=== PATIENT | female | born 1950 | race African-American/Black ===

== ENCOUNTER 2016-09-12 14:55 | Emergency (ER) | payer OTHER ==
[~2016-09-12] VITALS: Ht 165.1 cm; Wt 82.1 kg
[~2016-09-12 14:55] MED LIST: AZITHROMYCIN500 M1 PO; BENZONATATE100 MG PO; BREO ELLIPTA 21 EACH IH; CARDIZEM CD240 MG PO; DUONEB 2.5-0.5 M3 ML AEROSOL; INCRUSE ELLI62.5 MCG IH; LEVAQUIN500 MG PO; LEVOFLOXACIN750 MG PO; OMEPRAZOLE20 MG PO; OMEPRAZOLE40 M1 PO; PREDNISONE10 MG PO; PREDNISONE5 MG PO; PROVENTIL,2.5 MG/3 M IH; SPIRIVA RESPIMAT4 GM IH; VENTOLIN HFA18 GM IH
[2016-09-12 16:13] LABS: HEMATOCRIT 42.7 % (36.0-46.0); MCH 28.8 PG (29.0-34.0); MCHC 32.6 G/DL (30.0-36.0); MCV 88.4 FL (83-99); MEAN PLAT.VOLUME 10.7 uM^3 (9.5-12.4); PLATELET COUNT 238 K/uL (156-360); RBC DIS.WIDTH-CV 14.3 % (11.8-14.6); RBC DIS.WIDTH-SD 46.1 % (39-53); RED BLOOD COUNT 4.83 M/uL (3.80-5.20)
[2016-09-12 16:23] LABS: CHLORIDE 107 mEq/L (99-109); POTASSIUM 3.7 mEq/L (3.7-5.4); SODIUM 140 mEq/L (136-147)
[2016-09-12 16:24] LABS: GLUCOSE 105 mg/dL (70-99)
[2016-09-12 16:26] LABS: ANION GAP 11 MEQ/L (2-14)
[2016-09-12 16:28] LABS: GFR ESTIMATE (CALCULATED) > 59 mL/min/
[2016-09-12 16:29] LABS: UREA NITROGEN (BUN) 12 mg/dL (9-23)
[2016-09-12 16:35] LABS: TROP-I INTERPRETATION NEGATIVE; TROPONIN-I < 0.01 ng/mL (0.0-0.30)
[2016-09-12 17:33] LABS: INFLUENZA A VIRAL ANTIGEN NEGATIVE; INFLUENZA B VIRAL ANTIGEN NEGATIVE
[2016-09-12] MEDS ORDERED: PREDNISONE20 MG PO (17:49)
[2016-09-12 18:39] VITALS: BP 153/91
== END 2016-09-12 18:40 | disposition home or self-care (01) ==
LOC: EME 14:55
PROVIDERS: Nurse Practitioner Family
DX: J43.9 Emphysema, unspecified (principal); J44.9 Chronic obstructive pulmonary disease, unspecified; Z87.891 Personal history of nicotine dependence
CPT/HCPCS: 71020; 80048; 84484; 85027; 87502; 93005; 94640; 99281; 99284

== ENCOUNTER 2017-08-15 09:55 | Inpatient (IN) | payer OTHER ==
[~2017-08-15] VITALS: Ht 165.1 cm; Wt 87.3 kg
[~2017-08-15 09:55] MED LIST changes: +PREDNISONE20 MG PO
[2017-08-15 10:54] LABS: HEMOGLOBIN 14.6 G/DL (11.9-15.5); MCH 29.4 PG (29.0-34.0); MCHC 33.2 G/DL (30.0-36.0); MCV 88.5 FL (83-99); PLATELET COUNT 235 K/uL (156-360); RBC DIS.WIDTH-CV 13.5 % (11.8-14.6); RED BLOOD COUNT 4.97 M/uL (3.80-5.20); WHITE BLOOD COUNT 18.4 K/uL (4.1-10.2)
[2017-08-15 10:54] LABS: BASE EXCESS -3.4 mEq/L (-3 to +3); BICARBONATE 20.3 mEq/L (22-26); CARBOXY HGB 0.6 % (0-5); METHEMOGLOBIN 0.6 % (0-1.5); PO2 246 mm Hg (80-100)
[2017-08-15 10:55] LABS: COMMENTS - BLOOD GASES NAC+; DEVICE NIV VENT; FI02 100 %; MODE SPONT NIV; PCO2 32 mm Hg (35-45); PRES. SUPPORT 15 CM/H2O; SITE LR; TOTAL RESP RATE 20 resp/min; pH 7.41 (7.35-7.45)
[2017-08-15 10:56] LABS: CONTINUOUS POS AIRWAY PRESSURE 5 cm H2O
[2017-08-15 10:57] LABS: ALBUMIN 3.7 g/dL (3.2-4.8); CHLORIDE 102 mEq/L (99-109); POTASSIUM 3.7 mEq/L (3.7-5.4); SODIUM 136 mEq/L (136-147)
[2017-08-15 10:59] LABS: GLUCOSE 138 mg/dL (70-99); TOTAL PROTEIN 7.4 g/dL (6.4-8.3)
[2017-08-15 11:01] LABS: TOTAL BILIRUBIN 1.5 mg/dL (0.0-1.0)
[2017-08-15 11:03] LABS: ALKALINE PHOSPHATASE 112 IU/L (3-129); CREATININE 1.4 mg/dL (0.6-1.3); GFR ESTIMATE (CALCULATED) 49 mL/min/
[2017-08-15 11:04] LABS: UREA NITROGEN (BUN) 24 mg/dL (9-23)
[2017-08-15 11:05] LABS: AST (GOT) 35 IU/L (2-34)
[2017-08-15 11:06] LABS: ALT (GPT) 44 IU/L (3-49)
[2017-08-15 11:10] LABS: TROP-I INTERPRETATION NEGATIVE; TROPONIN-I 0.02 ng/mL (0.0-0.30)
[2017-08-15 11:33] LABS: DIRECT BILIRUBIN 0.8 mg/dL (0.0-0.3); LIPASE 3 U/L (1.0-51.0)
[2017-08-15 11:45] LABS: ABS NEUTROPHIL COUNT 15.1; ATYPICAL LYMPHOCYTE 0.9 %; BAND NEUTROPHILS 21.8 % (0-8.0); EOSINOPHIL ABS CT 0; LYMPHOCYTES 10.4 % (15.0-45.0); METAMYELOCYTES 5.2 %; MYELOCYTES 1.7 %; PLAT.SUFFICIENCY ADEQUATE; SMUDGE CELLS 1.7
[2017-08-15] MEDS ORDERED: BREO ELLIPTA 21 EACH IH (13:32)
[2017-08-15 16:05] VITALS: BP 142/92
[2017-08-15 19:35] LABS: TROP-I INTERPRETATION NEGATIVE; TROPONIN-I 0.04 ng/mL (0.0-0.30)
[2017-08-15 19:46] VITALS: BP 188/93
[2017-08-15 23:33] VITALS: BP 130/70
[2017-08-16 03:18] LABS: TROP-I INTERPRETATION NEGATIVE; TROPONIN-I 0.05 ng/mL (0.0-0.30)
[2017-08-16 03:46] VITALS: BP 169/78
[2017-08-16 05:29] LABS: MCH 28.8 PG (29.0-34.0); MCHC 32.3 G/DL (30.0-36.0); MCV 89.3 FL (83-99); PLATELET COUNT 218 K/uL (156-360); RBC DIS.WIDTH-CV 13.7 % (11.8-14.6); WHITE BLOOD COUNT 21.7 K/uL (4.1-10.2)
[2017-08-16 05:33] LABS: HEMOGLOBIN 11.3 G/DL (11.9-15.5); RED BLOOD COUNT 3.92 M/uL (3.80-5.20)
[2017-08-16 06:08] LABS: CHLORIDE 107 MEQ/L (99-109); GLUCOSE 126 mg/dL (70-99); POTASSIUM 3.7 MEQ/L (3.7-5.4); SODIUM 141 MEQ/L (136-147); UREA NITROGEN (BUN) 17 mg/dL (9-23)
[2017-08-16 06:13] LABS: CREATININE 0.9 MG/DL (0.6-1.3); GFR ESTIMATE (CALCULATED) > 59 mL/min/
[2017-08-16 08:51] VITALS: BP 144/87
[2017-08-16 12:15] VITALS: BP 145/83
[2017-08-16 15:54] VITALS: BP 148/81
[2017-08-16 16:19] LABS: APPEARANCE SL.HAZY ((CLEAR)); BILIRUBIN NEGATIVE; BLOOD MODERATE; COLOR YELLOW ((YELLOW)); GLUCOSE (STRIP) 50; KETONES NEGATIVE; LEUKOCYTES NEGATIVE; NITRITE NEGATIVE; PROTEIN (STRIP) 30; SPECIFIC GRAVITY 1.025 (1.000-1.030); UROBILINOGEN 0.2 MG/DL (0.2-1.0)
[2017-08-16 16:21] LABS: BACTERIA NONE SEEN /HPF; EPITHELIAL CELLS RARE /HPF; MUCUS TRACE /LPF; RED BLOOD CELLS 0-5 /HPF (0-5); UCUL ADDED? NO; WHITE BLOOD CELLS 0-5 /HPF (0-5)
[2017-08-16 19:37] VITALS: BP 150/79
[2017-08-17 00:03] VITALS: BP 136/74
[2017-08-17 07:20] VITALS: BP 151/87
[2017-08-17 15:24] VITALS: BP 135/73
[2017-08-17 23:26] VITALS: BP 118/69; BP 144/88
[2017-08-18 06:47] LABS: HEMATOCRIT 33.3 % (36.0-46.0); HEMOGLOBIN 10.8 G/DL (11.9-15.5); MCHC 32.4 G/DL (30.0-36.0); MCV 89.5 FL (83-99); NRBC (%) 0.2 /100 WBC (0-0); PLATELET COUNT 220 K/uL (156-360); RBC DIS.WIDTH-CV 14.3 % (11.8-14.6); RBC DIS.WIDTH-SD 46.2 % (39-53); RED BLOOD COUNT 3.72 M/uL (3.80-5.20); WHITE BLOOD COUNT 16.4 K/uL (4.1-10.2)
[2017-08-18 07:06] LABS: CHLORIDE 107 MEQ/L (99-109); CREATININE 0.9 MG/DL (0.6-1.3); GFR ESTIMATE (CALCULATED) > 59 mL/min/; GLUCOSE 129 mg/dL (70-99); POTASSIUM 4.3 MEQ/L (3.7-5.4); SODIUM 143 MEQ/L (136-147); UREA NITROGEN (BUN) 20 mg/dL (9-23)
[2017-08-18 07:27] LABS: ABS NEUTROPHIL COUNT 12.5; ATYPICAL LYMPHOCYTE 1.7 %; EOSINOPHIL ABS CT 0.1; EOSINOPHILS 0.9 % (0-5.0); LYMPHOCYTES 15.7 % (15.0-45.0); METAMYELOCYTES 0.9 %; MONOCYTES 2.6 % (0-9.0); MYELOCYTES 1.7 %; PLAT.SUFFICIENCY ADEQUATE; SEG.NEUTROPHILS 75.6 % (46.0-76.0)
[2017-08-18 07:28] LABS: BAND NEUTROPHILS 0.9 % (0-8.0)
[2017-08-18 08:00] VITALS: BP 116/68
[2017-08-18 16:00] VITALS: BP 138/66
[2017-08-18 23:12] VITALS: BP 161/86
[2017-08-19 07:33] VITALS: BP 176/83
[2017-08-19] MEDS ORDERED: SPIRIVA RESPIMAT4 GM IH (11:58)
[2017-08-19] MEDS ORDERED: BENZONATATE100 MG PO (11:59)
[2017-08-19] MEDS ORDERED: DUONEB 2.5-0.5 M3 ML AEROSOL (11:59)
[2017-08-19] MEDS ORDERED: AUGMENTIN875 MG PO (12:00)
[2017-08-19] MEDS ORDERED: PREDNISONE20 MG PO (12:00)
[2017-08-19] MEDS ORDERED: DIFLUCAN200 MG PO (14:00)
== END 2017-08-19 14:06 | disposition home health service (06) | DRG 189 ==
LOC: EME 09:55 → 5SOUTH 13:09 → EDOF 13:09 → ENRESERV 13:13 → EDOF 13:53 → ENRESERV 14:06 → 5SOUTH 15:48
PROVIDERS: Emergency Medicine; Hospitalist; Internal Medicine
DX: J96.21 Acute and chronic respiratory failure with hypoxia (principal); J18.9 Pneumonia, unspecified organism; J44.0 Chronic obstructive pulmonary disease with (acute) lower respiratory infection; J44.1 Chronic obstructive pulmonary disease with (acute) exacerbation; D64.9 Anemia, unspecified; K21.9 Gastro-esophageal reflux disease without esophagitis; Z87.891 Personal history of nicotine dependence; Z82.5 Family history of asthma and other chronic lower respiratory diseases; Z99.81 Dependence on supplemental oxygen
CPT/HCPCS: 36600; 71045; 80048; 80053; 80076; 81003; 82248; 82803; 83605; 83690; 84484; 85025; 85027; 87040; 87070; 87205; 87449; 87502; 90686; 93005; 94002; 94640; 94640 76; 94799; 99202; J0456; J0696; J1644; J2930; J3475; J7030; J7512; J7644

== ENCOUNTER 2018-03-07 20:53 | Inpatient (IN) | payer OTHER ==
[~2018-03-07] VITALS: Ht 165.1 cm; Wt 86.7 kg
[~2018-03-07 20:53] MED LIST changes: +AUGMENTIN875 MG PO; +DIFLUCAN200 MG PO
[2018-03-07 21:44] LABS: HEMATOCRIT 37.8 % (36.0-46.0); HEMOGLOBIN 12.5 G/DL (11.9-15.5); MCH 29.1 PG (29.0-34.0); MCHC 33.1 G/DL (30.0-36.0); MCV 87.9 FL (83-99); PLATELET COUNT 508 K/uL (156-360); RBC DIS.WIDTH-CV 13.9 % (11.8-14.6); RBC DIS.WIDTH-SD 44.4 % (39-53); WHITE BLOOD COUNT 18.4 K/uL (4.1-10.2)
[2018-03-07 21:51] LABS: CHLORIDE 105 mEq/L (99-109); POTASSIUM 3.9 mEq/L (3.7-5.4); SODIUM 142 mEq/L (136-147)
[2018-03-07 21:53] LABS: GLUCOSE 120 mg/dL (70-99)
[2018-03-07 21:57] LABS: CREATININE 0.8 mg/dL (0.6-1.3); GFR ESTIMATE (CALCULATED) > 59 mL/min/
[2018-03-07 21:58] LABS: UREA NITROGEN (BUN) 15 mg/dL (9-23)
[2018-03-07 22:05] LABS: TROP-I INTERPRETATION NEGATIVE; TROPONIN-I < 0.01 ng/mL (0.0-0.30)
[2018-03-07] MEDS ORDERED: AZELASTINE205.5 MCG/ BOTH NARES (22:28)
[2018-03-07] MEDS ORDERED: FLUTICASONE PRO16 GM BOTH NARES (22:29)
[2018-03-08 00:31] VITALS: BP 187/91
[2018-03-08 07:25] VITALS: BP 143/81
[2018-03-08 11:30] VITALS: BP 146/83
[2018-03-08 15:45] VITALS: BP 156/77
[2018-03-08 19:00] VITALS: BP 143/79
[2018-03-08 23:05] VITALS: BP 132/78
[2018-03-09] VITALS (7 sets, daily range): BP systolic 135–178; BP diastolic 67–94
[2018-03-09 06:47] LABS: CHLORIDE 102 MEQ/L (99-109); CREATININE 0.7 MG/DL (0.6-1.3); GFR ESTIMATE (CALCULATED) > 59 mL/min/; GLUCOSE 146 mg/dL (70-99); POTASSIUM 4.3 MEQ/L (3.7-5.4); SODIUM 140 MEQ/L (136-147); UREA NITROGEN (BUN) 16 mg/dL (9-23)
[2018-03-09 07:22] LABS: HEMOGLOBIN 10.6 G/DL (11.9-15.5); MCH 28.6 PG (29.0-34.0); MCHC 32.1 G/DL (30.0-36.0); MCV 89.2 FL (83-99); PLATELET COUNT 473 K/uL (156-360); RBC DIS.WIDTH-CV 13.9 % (11.8-14.6); RBC DIS.WIDTH-SD 45.5 % (39-53); WHITE BLOOD COUNT 29.7 K/uL (4.1-10.2)
[2018-03-10 03:03] VITALS: BP 155/81
[2018-03-10 07:15] VITALS: BP 136/78
[2018-03-10 08:35] LABS: HEMATOCRIT 38.4 % (36.0-46.0); HEMOGLOBIN 12.2 G/DL (11.9-15.5); MCH 28.8 PG (29.0-34.0); MCHC 31.8 G/DL (30.0-36.0); MCV 90.6 FL (83-99); NRBC (%) 0.1 /100 WBC (0-0); PLATELET COUNT 490 K/uL (156-360); RBC DIS.WIDTH-CV 14.1 % (11.8-14.6); RBC DIS.WIDTH-SD 47.2 % (39-53); RED BLOOD COUNT 4.24 M/uL (3.80-5.20); WHITE BLOOD COUNT 27.6 K/uL (4.1-10.2)
[2018-03-10 11:26] VITALS: BP 155/78
[2018-03-10 15:05] VITALS: BP 135/72
[2018-03-10 19:02] VITALS: BP 150/70
[2018-03-11 00:32] VITALS: BP 132/67
[2018-03-11 05:59] LABS: HEMATOCRIT 35.8 % (36.0-46.0); HEMOGLOBIN 11.4 G/DL (11.9-15.5); MCH 28.6 PG (29.0-34.0); MCHC 31.8 G/DL (30.0-36.0); MCV 89.9 FL (83-99); PLATELET COUNT 491 K/uL (156-360); RBC DIS.WIDTH-CV 13.8 % (11.8-14.6); RBC DIS.WIDTH-SD 46.3 % (39-53); RED BLOOD COUNT 3.98 M/uL (3.80-5.20); WHITE BLOOD COUNT 19.1 K/uL (4.1-10.2)
[2018-03-11 07:29] VITALS: BP 171/83
[2018-03-11 10:41] VITALS: BP 164/78
[2018-03-11] MEDS ORDERED: MEDROL DOSEPAK4 MG PO (11:04)
[2018-03-11] MEDS ORDERED: AMLODIPINE BESYL5 MG PO (11:04)
[2018-03-11] MEDS ORDERED: CEFTIN500 MG PO (11:04)
[2018-03-11] MEDS ORDERED: XOPENEX1.25 MG/3 IH (11:47)
== END 2018-03-11 13:45 | disposition home or self-care (01) | DRG 191 ==
LOC: EME → EDBD 20:53 → EME 20:53 → EDOF 23:14 → 5EAST 23:14 → ENRESERV 23:15 → EDOF 03-08 00:26 → 5EAST 03-08 00:27
PROVIDERS: Emergency Medicine; Hospitalist; Physician Assistant
DX: J44.1 Chronic obstructive pulmonary disease with (acute) exacerbation (principal); J44.0 Chronic obstructive pulmonary disease with (acute) lower respiratory infection; J20.9 Acute bronchitis, unspecified; J96.11 Chronic respiratory failure with hypoxia; R00.0 Tachycardia, unspecified; T48.6X5A Adverse effect of antiasthmatics, initial encounter; I10 Essential (primary) hypertension; K21.9 Gastro-esophageal reflux disease without esophagitis; Z99.81 Dependence on supplemental oxygen; Z87.891 Personal history of nicotine dependence
CPT/HCPCS: 36600; 71045; 71046; 80048; 81003; 84145 90; 84484; 85027; 87070; 87205; 93005; 94640; 94799; 99281; 99285; J0295; J0456; J0696; J1650; J2930; J7050; J7512